=== PATIENT | female | born 1960 | race Caucasian/White ===

== ENCOUNTER 2018-05-13 16:32 | Emergency (ER) | payer OTHER ==
[~2018-05-13] VITALS: Ht 154.9 cm; Wt 75.3 kg
[~2018-05-13 16:32] MED LIST: CIPRO500 MG PO; INDOMETHACIN75 MG PO
[2018-05-13 16:36] VITALS: BP 194/94; Ht 154.9 cm; Wt 75.3 kg
== END 2018-05-13 18:45 | disposition home or self-care (01) ==
LOC: ED 16:32
DX: S61.214A Laceration without foreign body of right ring finger without damage to nail, initial encounter (principal); S61.216A Laceration without foreign body of right little finger without damage to nail, initial encounter; I10 Essential (primary) hypertension; E78.00 Pure hypercholesterolemia, unspecified; M19.90 Unspecified osteoarthritis, unspecified site; W26.8XXA Contact with other sharp object(s), not elsewhere classified, initial encounter; Y93.89 Activity, other specified; Y92.89 Other specified places as the place of occurrence of the external cause; Y99.8 Other external cause status
CPT/HCPCS: 90715; J2001

== ENCOUNTER 2018-05-15 17:36 | Emergency (ER) | payer OTHER ==
[~2018-05-15] VITALS: Ht 167.6 cm; Wt 75.3 kg
[2018-05-15 17:50] VITALS: BP 128/86; Ht 167.6 cm; Wt 75.3 kg
== END 2018-05-15 18:52 | disposition left against medical advice (07) ==
LOC: ED 17:36
DX: Z53.21 Procedure and treatment not carried out due to patient leaving prior to being seen by health care provider (principal)

== ENCOUNTER 2018-05-16 06:05 | Emergency (ER) | payer OTHER ==
[~2018-05-16] VITALS: Ht 154.9 cm; Wt 76.0 kg
[2018-05-16 06:13] VITALS: BP 148/78; Ht 154.9 cm; Wt 76.0 kg
== END 2018-05-16 06:56 | disposition home or self-care (01) ==
LOC: ED 06:05
DX: S61.215D Laceration without foreign body of left ring finger without damage to nail, subsequent encounter (principal); I10 Essential (primary) hypertension; E78.00 Pure hypercholesterolemia, unspecified; M19.90 Unspecified osteoarthritis, unspecified site; X58.XXXD Exposure to other specified factors, subsequent encounter